=== PATIENT | male | born 1960 | race Caucasian/White ===

== ENCOUNTER 2018-04-25 06:08 | Inpatient (IN) | payer OTHER ==
[2018-04-14 09:25] LABS: ABSOLUTE BASOPHILS 0.1 thou/uL (0.0-0.2); ABSOLUTE LYMPHOCYTES 2.8 thou/uL (0.8-5.3); ABSOLUTE MONOCYTES 0.6 thou/uL (0.0-1.2); ABSOLUTE NEUTROPHILS 4.5 thou/uL (1.6-8.1); BASOPHILS 0.8 %; HEMATOCRIT 44.2 % (42.0-52.0); HEMOGLOBIN 14.6 gm/dL (14.0-18.0); LYMPHOCYTES 34.7 %; MCH 30.1 pg (26.0-34.0); MCHC 33.1 g/dL (28.0-37.0); MCV 90.8 fL (80.0-100.0); MONOCYTES 7.4 %; MPV 8.1 fl. (7.2-11.1); NUCLEATED RBCS 0 /100WBC; PLATELET COUNT* 248 thou/uL (150-400); POLYS 57.1 %; RBC 4.86 mil/uL (4.50-6.00); RDW-CV 16.3 % (10.5-14.5); WBC 7.9 thou/uL (4.0-11.0)
[2018-04-14 09:31] LABS: APTT 27.9 Seconds (25.0-31.3); PROTIME 10.2 Seconds (9.20-11.50)
[2018-04-14 09:38] LABS: ALBUMIN 3.7 g/dL (3.4-5.0); CREATININE 0.9 mg/dL (0.6-1.3); POTASSIUM 3.6 mmol/L (3.5-5.1); TOTAL BILIRUBIN 0.6 mg/dL (<0.1-1.0); TOTAL PROTEIN 7.4 g/dL (6.4-8.2)
[2018-04-14 10:31] LABS: ESR (SEDRATE) 10 mm/hr (0-20)
--- NOTE | 2018-04-14 11:08 | EKG ---
[place] [address] ELECTROCARDIOGRAM REPORT Name: RYLAND LINDO Room: PRE IN [facility]#: [id number] Admission: Attend Phys: Ho Harris Discharge: Date of : 56 Report #: [id number] THIS REPORT FOR: //name// [facility] Test Date: 2018-04-14 Test Time: 09:22:40 Pat Name: RYLAND LINDO Department: Room: Gender: M Photocopying Equipment Mechanic: : 1960 Requested By: Vince Chirinos Order Number: [id number] Reading MD: Krishan Jean Measurements Intervals [place] Rate: 72 P: 47 IL: 193 QRS: 25 QRSD: 108 T: 24 QT: 408 QTc: 447 Interpretive Statements Sinus rhythm Abnormal R-wave progression, early transition Compared to ECG 02/19/2015 10:04:51 Incomplete right bundle-branch block no longer present Electronically Signed On 04-14-2018 11:08:20 CDT by Krishan Jean [email or web address] <ELECTRONICALLY SIGNED> By: Krishan Jean MD, [facility] 04/14/18 1108 Krishan Jean MD, FAC /EPI
[2018-04-15 02:07] LABS: GLYCOHEMOGLOBIN (HGB A1C) 5.2 % (4.8-5.6)
[~2018-04-25] VITALS: Ht 180.3 cm; Wt 145.1 kg
[~2018-04-25 06:08] MED LIST: ALLOPURINOL 10100 M1 PO; ALLOPURINOL 30300 M2 PO; ASPIRIN325 PO; BAYER BACK & B1 EACH PO; COLACE100 MG PO; GLUCOSAMINE CO1 EACH PO; HYDROCODONE-AP1 EAC6 PO; METAMUCIL1 EAC1 PO; MOBIC15 MG PO; NORVASC10 MG PO; OXYCODONE HCL 55 MG PO; SUPER B COMPLE1 EAC2 PO; SYNTHROID PO; TOPROL XL50 MG PO; TRIAMTERENE-HC1 EAC3 PO; VITAMIN C WIT1000 MG PO; VITAMIN D 3 PO; XARELTO10 MG PO; [UNRECOGNIZED DRUG - OTHER] PO
[2018-04-25 06:37] VITALS: BP 143/84
[2018-04-25 11:00] VITALS: BP 127/72
[2018-04-25 12:15] VITALS: BP 127/84
[2018-04-25 16:00] VITALS: BP 120/75
[2018-04-26 00:01] VITALS: BP 149/75; BP 149/78
[2018-04-26 03:50] LABS: HEMOGLOBIN 12.5 gm/dL (14.0-18.0)
[2018-04-26 04:05] VITALS: BP 173/77
[2018-04-26] MEDS ORDERED: COLACE100 MG PO (07:56)
[2018-04-26 08:02] VITALS: BP 149/72
[2018-04-26 13:38] VITALS: BP 149/72
[2018-04-26] MEDS ORDERED: OXYCODONE HCL 55 MG PO (15:19)
[2018-04-26] MEDS ORDERED: ELIQUIS2.5 MG PO (15:20)
[2018-04-26] MEDS ORDERED: ASPIRIN325 PO (15:23)
[2018-04-26 15:28] VITALS: BP 149/72
--- NOTE | 2018-05-23 12:15 | OP ---
[address] [address] OPERATIVE REPORT Name: RYLAND LINDO Room: [address]#: [id number] Admission: 04/25/18 Attend Phys: Ho Harris Discharge: 04/26/18 Date of : 56 Report #: [id number] THIS REPORT FOR: //name// CC: Alcon Nam DATE OF SERVICE: 04/25/2018 PREOPERATIVE DIAGNOSIS: Advanced degenerative joint disease, right knee. POSTOPERATIVE DIAGNOSIS: Advanced degenerative joint disease, right knee. PROCEDURE: Right total knee arthroplasty. SURGEON: Vince Chirinos DO. LABORER CARPENTRY DOCK: Sandro Baker DO. SECOND MULTIMEDIA INSTRUCTIONAL DESIGNER: Hugo Foy DO. ESTIMATED BLOOD LOSS: 100 mL. TOURNIQUET TIME: One hour. ANTIBIOTICS: Vancomycin 1.5 grams IV preoperatively. COMPLICATIONS: None. DRAINS: None. SPECIMEN REMOVED: None. ORTHOPEDIC IMPLANTS: Biomet Vanguard total knee arthroplasty system. 1. Size 75 posterior stabilized femur. 2. Size 83 tibial baseplate. 3. A 14 mm polyethylene spacer posterior stabilized. 4. 34 mm asymmetrical patella. 5. 2 bags Palacos bone cement plain. CONDITION OF THE PATIENT: Stable to PACU. INDICATIONS: The patient is a very pleasant 57-year-old male, seen in my clinic regarding right knee pain that he has had for many years. Unfortunately, he failed extensive conservative treatment including anti-inflammatory medications and steroid injections. He had a previous total [place] [address] OPERATIVE REPORT Name: RYLAND LINDO Room: [address] [place] .R.#: [id number] Admission: 04/25/18 Attend Phys: Ho Harris Discharge: 04/26/18 Date of : 56 Report #: [id number] approximately 3 years ago, and he has done very well with this. Due to failed conservative treatment and x-ray findings consistent with end-stage degenerative joint disease of the right knee, I have recommended right total knee arthroplasty. I discussed procedure, risks, benefits, complications, indications in detail with him. Risks discussed include but not limited to infection, neurovascular injury, continued or worsened pain, need for further surgery, arthrofibrosis, hardware failure, fracture, DVT, PE and anesthesia complications. He does agree to this plan and wished to proceed with surgery. DESCRIPTION OF PROCEDURE: After consent was obtained, the patient was taken to the operative suite and placed in supine position on operating room table, was given benefit of general anesthesia. A well-padded tourniquet was placed on the right upper thigh. Right leg was sterilely prepped and draped in usual fashion. Preop timeout was obtained to confirm the correct patient, procedure and operative site. The leg was elevated, tourniquet inflated to 300 mmHg. It was inflated for approximately one hour throughout the procedure. A standard anterior knee midline incision was made. Sharp dissection was taken down to the level of capsule. A new knife was used, and a medial parapatellar arthrotomy was performed. He had a normal appearing joint effusion. He had significantly eburnated bone throughout all 3 compartments with severe osteophytes throughout. The patella was everted. Hohmann retractors were placed. Femoral drill was used to open the femoral canal. T-handle and intramedullary alecia were placed measuring 5-degree valgus cut. It took an extra 2 mm cut due to preoperative extension lag. The distal femoral cut was made through the captured block. Attention was then turned to the tibia. The external tibial guide was utilized, measuring 10 mm cut off the high lateral side. Proximal tibial cut was made to the captured block. The knee was taken through extension, 10 block was used to ensure adequate resection. The knee was again flexed. AP sizer was placed on the distal femur, which measured a size 75. Two ship's pilot holes were drilled in 3 degrees of external rotation. The size 75, 4-in-1 cutting block was then pinned in place. Anterior and posterior condylar cuts were then made as well as chamfer cuts. At this time, the box cut was made using the reamer. Proximal tibia was then exposed, this measured size 83. Size 83 tibial trial was pinned in place utilizing drop alecia, basing rotation off the medial third of the tibial tubercle and middle of talus. The trial femur was placed. A size 14 spacer was placed. Knee was taken through range of motion. He had full flexion/extension with stable varus valgus testing throughout range of motion. The patella was then everted. Posterior patellar cut was made using freehand technique. This measured size 34 Three peg holes were drilled, size 34 button was placed. Knee was taken through range of motion. The patella did track well. At this time, the trial femur and spacer were removed. Proximal tibia was opened with a drill and punch. All trial components were removed. Please note curved osteotome and rongeur were used to remove posterior osteophytes. The wound was then thoroughly irrigated with pulsatile lavage and dried [place] [address] OPERATIVE REPORT Name: RYLAND LINDO Room: [address]#: [id number] Admission: 04/25/18 Attend Phys: Ho Harris Discharge: 04/26/18 Date of : 56 Report #: [id number] Final components were opened, cement was mixed, placed on the exposed bone and the final components which were impacted into place. Excess cement was removed. A size 14 spacer was placed. Knee was taken through extension. Axial compression was applied and the cement hardened. Once cement hardened, trial reduction was performed, and a final size 14 spacer was chosen. This was placed on a clean tibial tray and locked in place with locking bar. The knee was taken through a final range of motion. He had full flexion/extension with stable varus valgus testing, good patellar tracking and equal flexion and extension gaps. At this time, ortho cocktail was injected after tourniquet was allowed to deflate. Hemostasis achieved with electrocautery and direct pressure. The knee was again thoroughly irrigated. Capsular tissue was closed with #1 Vicryl in a hbvjqr-[id number]-yuaaw fashion. PRP was injected into the capsule. Knee was again thoroughly irrigated. Subcutaneous tissue was closed with 2-0 Vicryl in inverted interrupted fashion, followed by a running V-locked stitch on the skin. This covered with Dermabond, was allowed to dry, Mepilex silver dressing, 4 x 4s, soft roll, Kana bandage and PolarCare ice pack. He did tolerate the procedure well without complications. He was taken to recovery room in stable condition. All needle and sponge counts correct x 2 at the end of the procedure. He will be admitted postoperatively for physical therapy, pain control. Expected greater than 2 midnights stay. We will give appropriate DVT prophylaxis and postoperative antibiotics. <ELECTRONICALLY SIGNED> By: Vince Chirinos DO 05/23/18 1215 0926 [id number] Dev Chirinos DO /nt
== END 2018-04-26 18:49 | disposition home health service (06) | DRG 470 ==
LOC: M.TBA 06:08 → M.PRE 06:51 → M.3W 11:24 → M.PRE 13:00 → M.3W 04-26 18:49
PROVIDERS: Orthopaedic Surgery; ADMIT Internal Medicine
PROC: 0SRC0J9 Replacement of Right Knee Joint with Synthetic Substitute, Cemented, Open Approach (ICD-10-PCS; principal; 2018-04-25)
DX: M17.0 Bilateral primary osteoarthritis of knee (principal); Z68.41 Body mass index [BMI] 40.0-44.9, adult; I10 Essential (primary) hypertension; G47.33 Obstructive sleep apnea (adult) (pediatric); E66.9 Obesity, unspecified; M10.9 Gout, unspecified; E03.9 Hypothyroidism, unspecified; Z96.652 Presence of left artificial knee joint; Z79.82 Long term (current) use of aspirin; Z79.899 Other long term (current) drug therapy; Z88.0 Allergy status to penicillin; Z80.9 Family history of malignant neoplasm, unspecified; Z83.3 Family history of diabetes mellitus; Z87.891 Personal history of nicotine dependence